=== PATIENT | male | born 1980 | race Caucasian/White ===

== ENCOUNTER 2024-12-11 06:21 | Day surgery (SDC) | payer OTHER, SELFPAY | END 2024-12-11 08:37 | disposition home or self-care (01) | LOC: GI 06:21 | PROVIDERS: ATTENDING PHYSICIAN Internal Medicine | DX: Z12.11 Encounter for screening for malignant neoplasm of colon (principal); K57.30 Diverticulosis of large intestine without perforation or abscess without bleeding; K64.8 Other hemorrhoids; D12.5 Benign neoplasm of sigmoid colon; D12.2 Benign neoplasm of ascending colon | CPT/HCPCS: 45385; 45380; 88305 ==